=== PATIENT | female | born 1965 | race Caucasian/White ===

== ENCOUNTER 2018-08-28 12:14 | Emergency (ER) | payer OTHER ==
[2018-08-28] MEDS ORDERED: Acetaminophen TAB* 325 MG PO ONE (12:57)
[2018-08-28] MEDS ORDERED: Ibuprofen TAB* 600 MG PO ONE (12:57)
--- NOTE | 2018-08-28 13:47 | RAD ---
Indication: LEFT knee pain. Fell earlier today. Chronic knee pain. Comparison: July 29, 2017 Technique: LEFT knee: AP and crosstable lateral views. Report: Negative for joint effusion or fracture. Advanced osteoarthritis with severe medial joint space narrowing and flattening the articular surfaces with resulting slight varus angulation. Suggestion of loose bodies at the patellofemoral joint recess as on the prior exam. Anterior and lateral soft tissue edema without gross change. Obese body habitus limits assessment of soft tissue contours. IMPRESSION: #. Negative for joint effusion or fracture. #. Advanced osteoarthritis.
--- NOTE | 2018-08-28 15:40 | ED ---
Lower Extremity - HPI Summary HPI Summary: Patient is a 52 y/o F BIBA w/ c/o left knee pain. She states that she fell this morning and landed on her left leg. Patient reports Hx of bilateral knee osteoarthritis, stating she cannot sleep at night due to pain. Pain is reported to be worsening. She recently had 8 weeks of PT which was discontinued due to insurance unwilling to cover further PT. Patient states she was being seen at a bariatric clinic but was having difficulty following the diet they gave her due to financial limitations. Patient denies fever, chills, CORREIA, ear pain, sore throat, blurred vision, double vision, neck pain, CP, SOB, ABD pain, back pain, dysuria, hematuria, blood in the stool, edema, bruising, rashes. PMHx of anxiety and depression. On triage, pain is rated 8/10, nothing is reported to aggravate/alleviate Sx. Home medications and allergies are reviewed. - History of Current Complaint Chief Complaint: EDExtremityLower Stated Complaint: LT KNEE PAIN Hx Obtained From: Patient Mechanism Of Injury: Fall From A Standing Position Onset of Pain: Prior to Arrival Onset/Duration: Still Present Severity Currently: Severe - 8/10 Pain Intensity: 8 Pain Scale Used: 0-10 Numeric - 8/10 Timing: Constant Location: Is Discrete @ - left knee Associated Signs And Symptoms: Positive: Knee Pain - left Aggravating Factor(s): Nothing Alleviating Factor(s): Nothing - Allergies/Home Medications Allergies/Adverse Reactions: Allergies Allergy/AdvReac Type Severity Reaction Status Date / Time Penicillins Allergy Anaphylatic Verified 08/28/18 14:01 Shock valsartan [From Diovan] Allergy Hives Verified 08/28/18 14:01 Home Medications: Home Medications Albuterol HFA INHALER* [Ventolin HFA Inhaler*] 1 - 2 puff INH Q4H PRN 08/28/18 [ History Confirmed 08/28/18] Atorvastatin* [Lipitor*] 40 mg PO BEDTIME 08/28/18 [History Confirmed 08/28/18] Fluticasone NASAL SPRAY 50MCG* [Flonase NASAL SPRAY 50MCG*] 2 spray BOTH NARES DAILY PRN 08/28/18 [History Confirmed 08/28/18] Levothyroxine TAB* [Synthroid TAB*] 75 mcg PO DAILY 08/28/18 [History Confirmed 08/28/18] Losartan/HCTZ 100/25 (NF) [Hyzaar 100/25 (NF)] 1 tab PO DAILY 08/28/18 [History Confirmed 08/28/18] Metformin HCl 500 mg PO BID 08/28/18 [History Confirmed 08/28/18] Montelukast Sodium TAB* [Singulair TAB*] 5 mg PO BEDTIME 08/28/18 [History Confirmed 08/28/18] Ranitidine TAB (NF) [Zantac TAB (NF)] 150 mg PO BID 08/28/18 [History Confirmed 08/28/18] Sertraline* [Zoloft*] 100 mg PO BID 08/28/18 [History Confirmed 08/28/18] Topiramate [Topiramate ER] 25 mg PO BEDTIME 08/28/18 [History Confirmed 08/28/18 ] amLODIPine TAB* [Norvasc 5 mg TAB*] 10 mg PO DAILY 08/28/18 [History Confirmed 08/28/18] busPIRone TAB* [Buspar TAB *] 15 mg PO BID 08/28/18 [History Confirmed 08/28/18] traZODone TAB* [Desyrel TAB*] 150 mg PO BEDTIME 08/28/18 [History Confirmed ] PMH/Surg Hx/FS Hx/Imm Hx Endocrine/Hematology History: Reports: Hx Diabetes - BORDERLINE Cardiovascular History: Reports: Hx Hypertension Denies: Hx Pacemaker/ICD History: Denies: Hx Renal Disease Sensory History: Denies: Hx Hearing Aid Psychiatric History: Denies: Hx Panic Disorder - Cancer History Hx Chemotherapy: No Hx Radiation Therapy: No - Surgical History Surgery Procedure, Year, and Place: C SECTION 02/2000. BREAST REDUCTION -2001. Rt KNEE- ARTHROSCOPIC- 01/2004. TUBAL LIGATION. BOWEL- REPAIR - THEN INFECTION - I&D ALSO Infectious Disease History: No Infectious Disease History: Denies: Traveled Outside the [place] in Last 30 Days - Family History Known Family History: Negative: Blood Disorder - Social History Alcohol Use: Rare Substance Use Type: Reports: None Smoking Status (MU): Never Smoked Tobacco Review of Systems Negative: Fever, Chills Positive: Other - NEGATIVE: double vision . Negative: Blurred Vision Negative: Sore Throat, Ear Ache Negative: Chest Pain Negative: Shortness Of Breath Negative: Abdominal Pain Positive: other - NEGATIVE: blood in stool . Negative: dysuria, hematuria Positive: Other - NEGATIVE: neck/back pain POSITIVE: left knee pain . Negative : Edema Negative: Rash, Bruising Negative: Headache Positive: Anxious - PMHx , Depressed - PMHx All Other Systems Reviewed And Are Negative: No Physical Exam - Summary Physical Exam Summary: Appearance: Alert, conversive, nontoxic appearing; patient is obese Skin: Warm, dry, no mottling, no rashes, no contusions HEENT: EOMI, PERRL, moist mucous membranes Neck: No masses on the neck, supple Respiratory: Clear to auscultation, breath sounds present, no rales, no rhonchi , no wheezes Cardiovascular: RRR, pulses are symmetrical in both lower and upper extremities Abdomen: Soft, non-tender Bowel Sounds: Present Musculoskeletal: No CVA tenderness, no obvious deformity, nearly full extension of left knee, no trauma. Neurological: A&Ox3, CN II-XII Intact, moving all extremities symmetrically Psychiatric: Normal affect and mood Triage Information Reviewed: Yes Vital Signs On Initial Exam: Initial Vitals Temp Pulse Resp BP Pulse Ox 97.5 F 99 18 138/83 92 08/28/18 12:16 08/28/18 12:16 08/28/18 12:16 08/28/18 12:16 08/28/18 12:16 Vital Signs Reviewed: Yes Diagnostics - Vital Signs Vital Signs Temp Pulse Resp BP Pulse Ox 08/28/18 12:16 97.5 F 99 18 138/83 92 - Laboratory Lab Statement: Any lab studies that have been ordered have been reviewed, and results considered in the medical decision making process. - Radiology left knee x-ray Radiology Interpretation Completed By: Radiologist Summary of Radiographic Findings: IMPRESSION: #. Negative for joint effusion or fracture. #. Advanced osteoarthritis. This report was reviewed by ED physician. Re-Evaluation - Re-Evaluation First Eval Re-Evaluation Time: 15:30 Comment: X-ray discussed with patient. Patient was offered crutches, she denies as she cannot use. She has a walker at home. Discussed Tylenol and motrin for patient for patient, knee wrapped in scarlett bandage. Patient will be discharged to home. Patient is agreeable with this plan. Lower Extremity Course/Dx - Course Course Of Treatment: Patient is a 52 y/o F BIBA w/ c/o left knee pain. She states that she fell this morning and landed on her left leg. Patient reports Hx of bilateral knee osteoarthritis, stating she cannot sleep at night due to pain. Pain is reported to be worsening. She recently had 8 weeks of PT which was discontinued due to insurance unwilling to cover further PT. Patient states she was being seen at a bariatric clinic but was having difficulty following the diet they gave her due to financial limitations. Physical exam showed nearly full extension of left knee, no trauma. Patient is obese. During ED course, patient received Motrin 600 mg and Tylenol 650 mg. Left knee x-ray showed IMPRESSION: #. Negative for joint effusion or fracture. #. Advanced osteoarthritis. X-ray discussed with patient. Patient was offered crutches, she denies as she cannot use. She has a walker at home. Discussed Tylenol and motrin for patient for patient, knee wrapped in scarlett bandage. Patient will be discharged to home. Patient is agreeable with this plan. - Diagnoses Provider Diagnoses: Arthritis, Obese Discharge - Sign-Out/Discharge Documenting (check all that apply): Patient Departure - discharge - Discharge Plan Condition: Stable Disposition: HOME Patient Education Materials: Osteoarthritis (ED) Referrals: Angelo Shields NP [Primary Care Provider] - Additional Instructions: please follow up with your primary care physician. try to continue losing weight. this will help your knees. return if worse or any new symptoms. wear the scarlett bandage for support. use your walker at home to help you ambulate. - Billing Disposition and Condition Condition: STABLE Disposition: Home - Attestation Statements Document Initiated by Paul: Yes Documenting Scribe: Ceasar Rojas Provider For Whom Paul is Documenting (Include Credential): Elena Veras MD Scribe Attestation: Ceasar Prasad , scribed for Elena Veras MD on 08/28/18 at 2057. Scribe Documentation Reviewed: Yes Provider Attestation: The documentation as recorded by the Ceasar rios accurately reflects the service I personally performed and the decisions made by me, Elena Veras MD
[2018-08-28 16:02] VITALS: BP 108/89
== END 2018-08-28 16:01 | disposition home or self-care (01) ==
LOC: ED 12:14
DX: M13.862 Other specified arthritis, left knee (principal); M13.861 Other specified arthritis, right knee; E66.9 Obesity, unspecified; Z88.0 Allergy status to penicillin; I10 Essential (primary) hypertension; E11.8 Type 2 diabetes mellitus with unspecified complications; Z79.84 Long term (current) use of oral hypoglycemic drugs
CPT/HCPCS: 99282; A9270-GY

== ENCOUNTER 2018-11-26 02:05 | Emergency (ER) | payer OTHER ==
[2018-11-26] MEDS ORDERED: PROCHLORPERAZINE INJ 5 MG/ML 2 ML VIAL IV ONE (02:13)
[2018-11-26] MEDS ORDERED: diPHENhydraMINE IV* 50 MG/ML 1 ml VIAL (BENADRYL) IV ONE (02:13)
[2018-11-26] MEDS ORDERED: Ketorolac INJ* 30 MG/ML 1 ML VIAL IV PUSH ONE (02:13)
[2018-11-26] MEDS ORDERED: NS 0.9% 1000 ML** 2,000 ML IV ONE (02:14)
[2018-11-26] MEDS ORDERED: diPHENhydraMINE PO* 50 MG ONE (02:36)
[2018-11-26] MEDS ORDERED: diPHENhydraMINE PO* 50 MG PO ONE (02:40)
[2018-11-26 05:09] VITALS: BP 136/84
--- NOTE | 2018-11-26 06:15 | ED ---
Headache - HPI Summary HPI Summary: Pt is 53 y/o F who presents to ED c/o migraine. Rates her pain as 10/10 in severity and describes it as sharp. Light makes it worse. Similar symptoms before with migraines. Notes neck pain and dizziness. PMHx of migraines. - History Of Current Complaint Chief Complaint: EDHeadache Stated Complaint: SEVERE MIGRAINE Time Seen by Provider: 11/26/18 02:10 Hx Obtained From: Patient Onset/Duration: Sudden Onset, Still Present Currently Pain Is: Current Pain Scale(0-10)= - 10/10, Severe Timing: Constant Character: Sharp Aggravating Factor: Nothing Allevating Factors: Nothing Associated Signs And Symptoms: Dizziness, Neck Pain - Allergies/Home Medications Allergies/Adverse Reactions: Allergies Allergy/AdvReac Type Severity Reaction Status Date / Time Penicillins Allergy Anaphylatic Verified 08/28/18 14:01 Shock valsartan [From Diovan] Allergy Hives Verified 08/28/18 14:01 PMH/Surg Hx/FS Hx/Imm Hx Endocrine/Hematology History: Reports: Hx Diabetes - BORDERLINE Cardiovascular History: Reports: Hx Hypertension Denies: Hx Pacemaker/ICD History: Denies: Hx Renal Disease Sensory History: Denies: Hx Hearing Aid Psychiatric History: Denies: Hx Panic Disorder - Cancer History Hx Chemotherapy: No Hx Radiation Therapy: No - Surgical History Surgery Procedure, Year, and Place: C SECTION 02/2000. BREAST REDUCTION -2001. Rt KNEE- ARTHROSCOPIC- 01/2004. TUBAL LIGATION. BOWEL- REPAIR - THEN INFECTION - I&D ALSO Infectious Disease History: No Infectious Disease History: Denies: Traveled Outside the [place] in Last 30 Days - Family History Known Family History: Negative: Blood Disorder - Social History Alcohol Use: Rare Substance Use Type: Reports: None Smoking Status (MU): Never Smoked Tobacco Review of Systems Positive: Other - neck pain Neurological: Other - Dizziness Positive: Headache All Other Systems Reviewed And Are Negative: Yes Physical Exam - Summary Physical Exam Summary: Appearance: Well-appearing, Well-nourished, lying in bed comfortably Skin: Warm, dry, no obvious rash Eyes: sclera anicteric, no conjunctival pallor ENT: mucous membranes moist, pharynx appears normal Neck: Supple, nontender Respiratory: Clear to auscultation, no signs of respiratory distress Cardiovascular: Normal S1, S2. No murmurs. Normal distal pulses in tibial and radial bilaterally. Abdomen: Soft, nontender, normal active bowel sounds present Musculoskeletal: Normal, Strength/ROM Intact Neurological: A&Ox3, awake and alert, mentation is normal, speech is fluent and appropriate Psychiatric: affect is normal, does not appear anxious or depressed Triage Information Reviewed: Yes Vital Signs On Initial Exam: Initial Vitals Temp Pulse Resp BP Pulse Ox 98.6 F 96 18 118/65 98 11/26/18 02:12 11/26/18 02:12 11/26/18 02:12 11/26/18 02:12 11/26/18 02:12 Vital Signs Reviewed: Yes Diagnostics - Vital Signs Vital Signs Temp Pulse Resp BP Pulse Ox 11/26/18 05:07 98.6 F 80 18 136/84 94 11/26/18 04:20 137/86 11/26/18 02:12 98.6 F 96 18 118/65 98 - Laboratory Lab Statement: Any lab studies that have been ordered have been reviewed, and results considered in the medical decision making process. Headache Course/Dx - Course Course Of Treatment: Pt is 53 y/o F who presents to ED c/o migraine. Notes neck pain and dizziness. PMHx of migraines. Physical exam was normal. In ED course pt was given fluids, Benadryl, and toradol. Pt felt better and was given diagnosis of migraine and discharged home. Pt is agreeable with this plan. - Diagnoses Provider Diagnoses: Migraine Discharge - Sign-Out/Discharge Documenting (check all that apply): Patient Departure - Discharge - Discharge Plan Condition: Improved Disposition: HOME Prescriptions: Prochlorperazine TAB* [Compazine Tab*] 10 mg PO Q6H PRN #14 tab PRN Reason: Headache/Pain Patient Education Materials: Migraine Headache (ED) Referrals: Angelo Shields NP [Primary Care Provider] - - Billing Disposition and Condition Condition: IMPROVED Disposition: Home - Attestation Statements Document Initiated by Scribe: Yes Documenting Scribe: Bella Bustos Provider For Whom Scribe is Documenting (Include Credential): Dr. Tu Collier MD Scribe Attestation: Bella Prasad, scribed for Dr. Tu Collier MD on 11/26/18 at 1943. Scribe Documentation Reviewed: Yes Provider Attestation: The documentation as recorded by the Bella rios accurately reflects the service I personally performed and the decisions made by me, Dr. Tu Collier MD Status of Paul Document: Viewed
== END 2018-11-26 05:07 | disposition home or self-care (01) ==
LOC: ED 02:05
DX: G43.909 Migraine, unspecified, not intractable, without status migrainosus (principal); R42 Dizziness and giddiness; M54.2 Cervicalgia; Z88.0 Allergy status to penicillin; Z88.8 Allergy status to other drugs, medicaments and biological substances
CPT/HCPCS: 96361; 96374; 96375; 99283; A9270-GY; J0780; J1885